=== PATIENT | female | born 1975 | race Caucasian/White ===

== ENCOUNTER 2019-03-02 17:56 | Emergency (ER) | payer OTHER, SELFPAY ==
[2019-03-02 17:56] VITALS: BP 124/71; PULSE 85; RESP 19; TEMP 36.6; O2SAT 99; BMI 23.8
--- NOTE | 2019-03-02 18:26 | ED.DCSUM_ITS ---
- ER Visit Summary Date of Service: 03/02/19 Chief Complaint: Dizziness, vertigo History of Present Illness: The patient is a 43 F presenting with dizziness, spinning sensation. She states this has been intermittent for the past 1.5 weeks. She states initially it was only when she turned her head. She went to her chiropractor thinking this was a neck problem. This did not help her symptoms. She states it worsened today when she stood up, she had a spinning sensation. She had nausea and vomiting associated with this today. She denies headache, weakness, numbness. Denies chest pain or shortness of breath. Denies fever. Denies other complaints. Physical Examination: Vitals are stable. Patient is afebrile. Alert no acute distress. HEENT exam is unremarkable. Neck is supple. Lungs are clear and equal bilaterally. Heart is regular rate and rhythm. Abdomen is soft nontender nondistended. Extremities are unremarkable. Skin is warm and dry. No focal neurologic deficit. Remainder of exam is unremarkable. Emergency Department Course and Treatment: Patient given IV fluids, Phenergan, meclizine. On reevaluation she had improvement of her symptoms. She was given Valium. Her symptoms have improved. She is able to ambulate to the bathroom without difficulty. She will follow-up with her primary care physician. She is given ENT for follow-up as needed. She given prescription for meclizine. Advised to return to ED for worsening complaints. Disposition: Discharge home Impression: Benign positional vertigo This note was generated with [employer] dictation software. It may contain incorrect words, spelling, and punctuation that were not noted in review of the chart prior to signing ED Disposition - Plan for ED Patient: Referrals: Jesus Valdes,Out of [Primary Care Provider] -
[2019-03-02] MEDS: 0.9% Normal Saline 1,000 ML 999 ML IV (18:47)
[2019-03-02] MEDS: proMETHazine 25 MG/ML Syringe 6.25 MG IV (18:48)
[2019-03-02] MEDS: Meclizine HCl 25 MG Tablet PO (19:07)
[2019-03-02] MEDS: diazePAM 5 MG Tablet PO (20:20)
[2019-03-02 20:21] VITALS: BP 96/61; PULSE 69; RESP 16; O2SAT 100
--- NOTE | 2019-03-02 21:20 | ED.DEP ---
ED Disposition - Plan for ED Patient: Instructions: ED BPV Vertigo Prescriptions: Meclizine HCl [Antivert] 25 mg PO 4X/DAY PRN PRN #20 tablet PRN Reason: Dizziness Referrals: [facility],Out of [Primary Care Provider] -
--- NOTE | 2019-03-02 21:33 | ED.DEP ---
ED Disposition - Plan for ED Patient: Instructions: ED BPV Vertigo Prescriptions: Meclizine HCl [Antivert] 25 mg PO 4X/DAY PRN PRN #20 tablet PRN Reason: Dizziness Referrals: [facility],Out of [Primary Care Provider] - Anastacio Kearney MD [STAFF PHYSICIAN] -
[2019-03-02 21:43] VITALS: BP 100/70; PULSE 68; RESP 14; O2SAT 100
== END 2019-03-02 21:44 | disposition home or self-care (01) ==
PROVIDERS: Emergency Provider Emergency Medicine
DX: H81.10 Benign paroxysmal vertigo, unspecified ear (principal)
CPT/HCPCS: 96361; 96374; 99284; J7030; A4216

== ENCOUNTER 2019-04-19 16:00 | Outpatient (RCR) | payer OTHER, SELFPAY ==
--- NOTE | 2019-03-29 16:38 | HP.PTEVAL ---
Patient's Visit Information STARR GALLO is a 43 year old F referred to Physical Therapy by Anastacio Kearney MD with a diagnosis of BPPV. Date of Evaluation: 03/29/19 Physical Therapist: Anastacio Pedersen, JONE, OCS, CSCS - Visit Plan Frequency: 1x/Week Duration: 2-4 Weeks Plan: weekly x 2-4 as needed for positional treatment and education. - Subjective Findings: Dizzy for a while, 3 weeks ago in ER due to bad dizzyness. May have been slightly lightheaded prior. Sat up and room started spinning and threw up and went to ER. Gave IV of drugs to stop nausea and spinning. No tests. sent to ENT 2 weeks ago. Told her crystals out of place. Gets dizzy when rolling in bed R is being avoided. Used to get spinning rolling head to right. Bending forward will cause her to spin Thursday for seconds. No falls. Sleeping is Ok with spinning. 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 Bends at knees not straight over. Missed one day after hospital. Activities at home are crarefula dn she toughs through it. - Objective Walks normal but no head movement. trasnfers I. c/s aROM WFL and without pain today. - L hallpike. + R hallpike for 8 second upward torsional nystagmus. Treated with R Mario Alberto then - R hallpike. - Goals Goal 1:: Abolish vertigo 100% Goal Time Frame: 2-4 Weeks Goal 2:: Pt activity at normal speed without hesitation Goal Time Frame: 2-4 Weeks - Rehabilitation Potential Physical Therapy Diagnosis: BPPV Rehabilitation Potential: Excellent - Anticipated Interventions Patient/Client Instruction: Educate patient on: Condition, Plan of Care For the Purpose of:: To increase tolerance to activity/condition/position Comment: positional treatment adn ex as needed. For the Purpose of:: To increase tolerance to activity/condition/position Thank you for the opportunity to evaluate your patient. For Medicare and Medicare HMO plans, please review the plan of care and approve it. It will need to be FAXED BACK to us at [phone] for Medicare purposes. For Medicare only, by signing this I certify the plan of care. Please let me know if there are questions or concerns regarding this plan of care. Physician Signature: Date:
--- NOTE | 2019-04-19 17:36 | HP.PTDCSUM ---
HP - PT D/C Summary It has been my pleasure to treat STARR GALLO under orders from Anastacio Kearney MD, for the diagnosis of BPPV for a total of 3 visit(s). Discharge Date: 04/19/19 Please see the following information for a summary of their discharge status. - Subjective Subjective: Pt thought she had appointment today. Has had no dizzyness since last appointment. Did not have to start BD ex. Has been doing normal job and life is back to 100% normal. Was scheduled to see doctor yesterday but he was running too far behind for her liking. - Overall Improvement % Improvement: 100 - Objective Objective/Function: - B hallpike jessie and roll test. Walking normal and patient back to normal with life. - Goals Goal 1:: Abolish vertigo 100% Goal Progress: Goal Met Goal 2:: Pt activity at normal speed without hesitation Goal Progress: Goal Met - Plan Plan: D/C - D/C Information Discharge Comments: Pt doing well and will reschedule with ENT as needed. If there are questions or concerns regarding this patient's physical therapy, please feel free to call me at [phone]. Thank you for the referral of this patient. Sincerely, Anastacio Pedersen, DPT, OCS, CSCS
== END 2019-04-19 19:00 | disposition home or self-care (01) ==
LOC: PT 16:00
PROVIDERS: Family Provider Family Medicine; PCP Family Medicine; Referring Provider Otolaryngology; Visit Provider Otolaryngology
DX: H81.10 Benign paroxysmal vertigo, unspecified ear (principal)
CPT/HCPCS: 97161; 97530

== ENCOUNTER → 2019-12-15 10:39 | Outpatient (CLI) | payer OTHER, SELFPAY ==
--- NOTE | 2019-12-15 10:42 | BI_ITS ---
MAMMOGRAPHY - BILATERAL SCREENING REASON FOR EXAM: Female, 43 years old. Routine annual screening examination. PERTINENT HISTORY: Non-contributory. TECHNIQUE: Digital bilateral breast jennifer (3D mammographic acquisition) in the CC and MLO projections. 2-D mediolateral oblique (MLO) and craniocaudad (CC) views of both breasts were obtained. CAD: Full Field Digital Mammography with Computer Added Detection was performed. COMPARISON: Comparison is made with prior examination dated July 10, 2016. FINDINGS: Breast Composition: The breasts are heterogeneously dense, which may obscure small masses. There are no dominant masses or suspicious calcifications. No other significant abnormalities are identified. There has been no significant change since the prior study. BI/SCREEN MAMM (CAD) W/JENNIFER BILAT IMPRESSION: Stable bilateral screening mammogram. Yearly follow-up mammogram recommended. (A) ASSESSMENT CATEGORY: BIRADS Category 1: Negative. A letter regarding these results will be sent to the patient by the facility within 30 days. Approximately 10% of breast cancers are not detected by mammography. A normal mammogram should not delay biopsy of a clinically suspicious abnormality. [id number] Electronically Signed: Lyle Loving, at 12:13 EST , Service support ,
== END ==
PROVIDERS: PCP Family Medicine; Referring Provider Family Medicine; Visit Provider Family Medicine
DX: Z12.31 Encounter for screening mammogram for malignant neoplasm of breast (principal)
CPT/HCPCS: 77063; 77067

== ENCOUNTER → 2023-06-29 | Outpatient (CLI) | payer OTHER, SELFPAY ==
--- NOTE | 2023-06-29 14:59 | BI_ITS ---
MAMMOGRAPHY - BILATERAL SCREENING REASON FOR EXAM: Female, 47 years old. Routine annual screening examination. PERTINENT HISTORY: Non-contributory. TECHNIQUE: Digital bilateral breast jennifer (3D mammographic acquisition) in the CC and MLO projections. 2-D mediolateral oblique (MLO) and craniocaudad (CC) views of both breasts were obtained. CAD: Full Field Digital Mammography with Computer Added Detection was performed. COMPARISON: Comparison is made with prior study dated December 15, 2019 and July 10, 2016. FINDINGS: Breast Composition: The breasts are extremely dense, which lowers the sensitivity of mammography. There is a 2.2 cm x 1.8 cm well-defined nodule in the axillary region of the right breast. Correlation with ultrasound is recommended. Stable small benign-appearing bilateral axillary nodes. No other significant abnormalities are identified. BI/SCRN MAMM (CAD)W/JENNIFER BILAT IMPRESSION: 2.2 cm x 1.8 cm well-defined nodule in the axillary region of the right breast. Correlation with ultrasound is recommended. ASSESSMENT CATEGORY: BIRADS Category 0: Incomplete. Need additional imaging evaluation. A letter regarding these results will be sent to the patient by the facility within 30 days. Approximately 10% of breast cancers are not detected by mammography. A normal mammogram should not delay biopsy of a clinically suspicious abnormality. [id number] Electronically Signed: Lyle Loving MD at 15:42 EDT ,
== END | disposition home or self-care (01) ==
PROVIDERS: PCP Family Medicine; Referring Provider Nurse Practitioner Family; Visit Provider Nurse Practitioner Family
DX: Z12.31 Encounter for screening mammogram for malignant neoplasm of breast (principal)
CPT/HCPCS: 77063; 77067

== ENCOUNTER → 2023-07-07 | Outpatient (CLI) | payer OTHER, SELFPAY ==
--- NOTE | 2023-07-07 14:26 | US_ITS ---
STUDY: ULTRASOUND BREAST - LEFT REASON FOR EXAM: Female, 47 years old. Palpable lump in the right breast. TECHNIQUE: Axial and longitudinal images of the LEFT breast were performed with a high resolution ultrasound transducer. # OF IMAGES: 20 COMPARISON: Comparison is made with prior mammogram dated June 29, 2023. FINDINGS: LEFT Breast: The upper outer quadrant of the right breast was examined with ultrasound. The mammographic abnormality corresponds to a 1.9 cm x 2.2 cm x 0.6 cm cyst. This is at the 11:00 position the breast at 9 to 10 cm from the nipple. US/Breast Limited Unilateral IMPRESSION: The mammographic abnormality corresponds to a 1.9 cm x 2.2 cm x 0.6 cm cyst. ASSESSMENT CATEGORY: BIRADS Category 2: Benign. A letter regarding these results will be sent to the patient by the facility within 30 days. Electronically Signed: Lyle Loving MD at 15:33 EDT ,
== END | disposition home or self-care (01) ==
LOC: OPUS 14:25
PROVIDERS: PCP Family Medicine; Referring Provider Nurse Practitioner Family; Visit Provider Nurse Practitioner Family
DX: N63.21 Unspecified lump in the left breast, upper outer quadrant (principal)
CPT/HCPCS: 76642

== ENCOUNTER → 2023-09-18 | Outpatient (CLI) | payer OTHER, SELFPAY ==
--- NOTE | 2023-09-18 13:49 | SPIR ---
Spirometry PFT Testing Spirometry PFT Testing: COMPLETE PULMONARY FUNCTION TEST INTERPRETATION Brief HPI: Patient is a 47-year-old female, currently under the care of Erum Parada, who presents to [facility] for complete pulmonary function tests secondary to diagnosis of chest discomfort. Respiratory therapist reports good effort and reproducible results. Interpretation: Forced expiration spirometry shows no large airways obstructive ventilatory defect with an FEV1 of 85% predicted. There was no bronchodilator response tested. Spirograms are of good quality and plateau normally. The respiratory flow volume loop shows a normal pattern. No previous pulmonary function tests were available for review. Impression: Normal spirometry
== END | disposition home or self-care (01) ==
LOC: PSN 09:23
PROVIDERS: Referring Provider Nurse Practitioner Family; Visit Provider Nurse Practitioner Family
DX: R07.89 Other chest pain (principal); J98.9 Respiratory disorder, unspecified
CPT/HCPCS: 94010

== ENCOUNTER → 2023-10-01 | Outpatient (CLI) | payer OTHER, SELFPAY ==
[2023-10-01 08:00] VITALS: PULSE 79; PULSE 91; PULSE 94; PULSE 95; PULSE 96; PULSE 97; O2SAT 97; O2SAT 98; O2SAT 99
--- NOTE | 2023-10-03 05:42 | WT_ITS ---
PSN 6 Minute Walk Test 6 Minute Walk Test 6 Minute Walk Test: 6 Minute Walk Test PSN:6-Minute Walk Test Start: 10/01/23 08:17 Freq: Status: Active Protocol: RESP.6MINW Document 10/01/23 08:00 [facility] (Rec: 10/01/23 08:22 [facility] [id number]) 6 Minute Walk Test Date Performed 10/01/23 Time Performed 08:00 Height 5 ft 2 in Weight: 63.503 kg Weight in Pounds 140.[address]: [facility] ATMOSPHERIC PHYSICIST Assistive device used: None Pre-test Oxygen Delivery Method Room Air Pulse Ox 99 Pulse Rate (60-100) 79 Dyspnea Aram Scale (0-10) 0.5 Exertion Aram Scale (6-20) 6 1st minute Oxygen Delivery Method Room Air Pulse Rate (60-100) 97 Dyspnea Aram Scale (0-10) 89 2nd minute Oxygen Delivery Method Room Air Pulse Ox 98 Pulse Rate (60-100) 96 3rd minute Oxygen Delivery Method Room Air Pulse Ox 98 Pulse Rate (60-100) 91 4th minute Oxygen Delivery Method Room Air Pulse Ox 98 Pulse Rate (60-100) 94 5th minute Oxygen Delivery Method Room Air Pulse Ox 98 Pulse Rate (60-100) 95 6th minute Oxygen Delivery Method Room Air Pulse Ox 98 Pulse Rate (60-100) 91 Dyspnea Aram Scale (0-10) 1 Exertion Aram Scale (6-20) 8 Post-test Oxygen Delivery Method Room Air Pulse Ox 97 Pulse Rate (60-100) 79 Full Laps Walked 23 Partial Lap, Number of Tiles Walked 6 Total Distance Walked (ft) 1363 Interpretation Interpretation: Patient was able to ambulate 1363 feet over the course of 6 minutes on room air with no assistive devices or breaks. The patient experienced no significant desaturation or tachycardia. These findings are consistent with a normal [facility] oximetry. Recommendations Recommendations: No supplemental oxygen is indicated at this time.
== END | disposition home or self-care (01) ==
LOC: PSN 07:57
PROVIDERS: Referring Provider Nurse Practitioner Family; Visit Provider Nurse Practitioner Family
DX: R07.89 Other chest pain (principal); J98.9 Respiratory disorder, unspecified
CPT/HCPCS: 94618

== ENCOUNTER → 2025-04-03 | Outpatient (CLI) | payer OTHER, SELFPAY ==
--- NOTE | 2025-04-03 12:45 | BI_ITS ---
EXAM: SCRN MAMM (CAD)W/JENNIFER BILAT DATE: 04/03/2025 CLINICAL HISTORY: F, Age 49 y/o , SCREENING FOR MAMMOGRAM BREAST CANCER RISK ASSESSMENT: Has not been calculated. TECHNIQUE: SCRN MAMM (CAD)W/JENNIFER BILAT COMPARISON: Prior exam(s) dated mammograms dated 06/29/2023 an 12/15/2019. FINDINGS: TISSUE DENSITY: The breast tissue is heterogeneously dense, which may obscure small masses. Bilateral Breast Mammographic Findings: No suspicious masses, suspicious clustered microcalcifications, architectural distortion or secondary signs of malignancy is identified in either breast. Benign-appearing round calcifications are seen in both breasts. 2 stable 3 mm and 2 mm well-circumscribed isodense masses are seen in the superior outer, far posterior aspect of the right breast. BI/SCRN MAMM (CAD)W/JENNIFER BILAT IMPRESSION: Benign screening mammogram. OVERALL FINAL ASSESSMENT BI-RADS 2: BENIGN RECOMMEND ANNUAL MAMMOGRAPHIC SCREENING. RECOMMENDATION: Routine annual follow-up in 1 Year A letter with findings and recommendations will be mailed to the patient. Reading Location: [id number]
== END | disposition home or self-care (01) ==
LOC: OPBI 12:36
PROVIDERS: PCP Family Medicine
DX: Z12.31 Encounter for screening mammogram for malignant neoplasm of breast (principal)
CPT/HCPCS: 77063; 77067